=== PATIENT | female | born 1950 ===

== ENCOUNTER 2021-11-23 10:55 | Day surgery (SDC) | payer OTHER ==
[~2021-11-23] VITALS: Ht 147.3 cm; Wt 58.5 kg
[~2021-11-23 10:55] MED LIST: CLONAZEPAM0.5 MG/TAB PO; IBERSARTAN PO; LANTUS SOLOSTAR3 ML SC; METFORMIN HCL500 MG PO; NABUMETONE500 MG PO; PERCOCET 5/3251 TAB PO; SYNTHROID50 MCG PO; ZOCOR PO
== END 2021-11-23 17:25 | disposition home or self-care (01) ==
LOC: CIR.AMB 10:55
PROVIDERS: ATTEND Obstetrics & Gynecology
DX: N84.0 Polyp of corpus uteri (principal); Z20.822 Contact with and (suspected) exposure to COVID-19; Z88.0 Allergy status to penicillin; E03.9 Hypothyroidism, unspecified; E11.9 Type 2 diabetes mellitus without complications; Z79.84 Long term (current) use of oral hypoglycemic drugs